=== PATIENT | female | born 1955 | race Two or more races ===

== ENCOUNTER 2019-06-14 06:05 | Day surgery (SDC) | payer OTHER ==
[~2019-06-14 06:05] MED LIST: HYDROCHLOROTH12.5 M1 PO; LISINOPRIL10 MG; SIMVASTATIN80 MG PO; ZOCOR40 MG PO
[2019-06-14] MEDS ORDERED: PERCOCET 5-3251 EACH PO (09:08)
== END 2019-06-14 13:50 | disposition home or self-care (01) ==
LOC: CIR.AMB 06:05
DX: M23.321 Other meniscus derangements, posterior horn of medial meniscus, right knee (principal); M23.351 Other meniscus derangements, posterior horn of lateral meniscus, right knee; M65.862 Other synovitis and tenosynovitis, left lower leg; M94.262 Chondromalacia, left knee